=== PATIENT | male | born 1970 ===

== ENCOUNTER → 2023-06-24 07:15 | Outpatient (CLI) | payer OTHER ==
[2023-06-24 08:07] LABS: URINE APPEARANCE Clear; URINE BILIRRUBIN Negative (NEGATIVE); URINE BLOOD Negative; URINE COLOR Yellow; URINE GLUCOSE Negative (NEGATIVE); URINE LEUKOCYTE Negative; URINE NITRATE Negative; URINE PROTEIN Negative (NEGATIVE); URINE UROBILINOGEN 0.2 E.U./dl
[2023-06-24 08:11] LABS: URINE RBC 5.7 uL (0.0-20.8); URINE WBC 4.7 uL (0.0-23.2)
[2023-06-24 08:25] LABS: URINE BACTERIA 3.7 uL (0.0-1933); URINE EPITHELIAL CELLS 0.6 uL (0.0-38.8)
== END | disposition home or self-care (01) ==
LOC: LAB 07:15
PROVIDERS: ATTEND Urology
DX: N40.0 Benign prostatic hyperplasia without lower urinary tract symptoms (principal); R31.21 Asymptomatic microscopic hematuria; R97.20 Elevated prostate specific antigen [PSA]

== ENCOUNTER 2023-06-24 07:45 | Outpatient (CLI) | payer OTHER | END 2023-06-24 07:46 | disposition home or self-care (01) | LOC: SONOGRAMA 07:45 | PROVIDERS: ATTEND Urology | DX: N40.0 Benign prostatic hyperplasia without lower urinary tract symptoms (principal); R31.21 Asymptomatic microscopic hematuria; R31.0 Gross hematuria; R33.9 Retention of urine, unspecified ==